=== PATIENT | female | born 1970 ===

== ENCOUNTER 2016-07-25 21:59 | Emergency (ER) | payer MEDICAID ==
[2016-07-25 21:59] VITALS: BMI 30.4
[2016-07-25 22:24] VITALS: RESP 16; TEMP 97.9; O2SAT 100
--- NOTE | 2016-07-25 22:34 | ED PDOC ---
HPI: Psych/Substance Abuse Time Seen by Provider: 07/25/16 22:26 Chief Complaint (Nursing): Psychiatric Evaluation Chief Complaint (Provider): Crisis eval History Per: Patient Additional Complaint(s): To ED for psych evaluation. Patient states she is feeling depressed starting today. Patient denies suicidal or homicidal ideations. Patient currently receiving monthly injection of Abilify 3mg and taking Lamictal 100mg daily. Past Medical History Reviewed: Historical Data, Nursing Documentation, Vital Signs Vital Signs: Last Vital Signs Temp 97.9 F 07/25/16 22:21 Pulse 80 07/25/16 22:21 Resp 16 07/25/16 22:21 BP 144/92 H 07/25/16 22:21 Pulse Ox 100 07/25/16 22:21 - Medical History PMH: Anemia, Anxiety, Depression, Hypothyroidism Denies: HIV, Chronic Kidney Disease - Surgical History Surgical History: Cholecystectomy, Hernia Repair (x 3), (x 2) - Family History Family History: States: Unknown Family Hx - Living Arrangements Living Arrangements: With Family - Social History Current smoker - smoking cessation education provided: No Alcohol: None Drugs: Denies - Home Medications Home Medications: Ambulatory Orders Medication Instructions Recorded ARIPiprazole [Abilify] 5 mg PO DAILY 06/03/14 Levothyroxine [Synthroid] 75 mcg PO DAILY 06/03/14 Risperidone [Risperdal] 2 mg PO BID 05/25/16 Docusate [Colace] 100 mg PO BID PRN #30 cap 05/27/16 Ferrous Sulfate [Feosol] 325 mg PO BID #60 tab 05/27/16 - Allergies Allergies/Adverse Reactions: Allergies Allergy/AdvReac Type Severity Reaction Status Date / Time No Known Allergies Allergy Verified 07/25/16 22:21 Review of Systems ROS Statement: Except As Marked, All Systems Reviewed And Found Negative Physical Exam - Reviewed Nursing Documentation Reviewed: Yes Vital Signs Reviewed: Yes - Physical Exam Appears: Positive for: Well, Non-toxic, No Acute Distress Head Exam: Positive for: ATRAUMATIC, NORMAL INSPECTION, NORMOCEPHALIC Skin: Positive for: Normal Color, Warm, DRY Eye Exam: Positive for: EOMI, Normal appearance, PERRL ENT: Positive for: Normal ENT Inspection Neck: Positive for: Normal, Painless ROM Cardiovascular/Chest: Positive for: Regular Rate, Rhythm Respiratory: Positive for: CNT, Normal Breath Sounds Gastrointestinal/Abdominal: Positive for: Normal Exam, Bowel Sounds, Soft Back: Positive for: Normal Inspection Extremity: Positive for: Normal ROM Neurologic/Psych: Positive for: Alert, Oriented - ECG O2 Sat by Pulse Oximetry: 100 Medical Decision Making Medical Decision Making: Pt underwent crisis eval, see note Disposition - Clinical Impression Clinical Impression: Depression - Patient ED Disposition Is Patient to be Admitted: No - Disposition Disposition: Routine/Home Disposition Time: 00:00 Condition: GOOD Instructions: Depression (ED) - POA Present On Arrival: None
[2016-07-26 01:07] VITALS: BP 133/81; PULSE 76
== END 2016-07-26 01:20 | disposition home or self-care (01) ==
LOC: H.ER 21:59
DX: F32.9 Major depressive disorder, single episode, unspecified (principal)

== ENCOUNTER 2016-10-31 11:23 | Emergency (ER) | payer MEDICAID ==
[2016-10-31 11:23] VITALS: BMI 30.4
[2016-10-31 11:42] VITALS: BP 126/75; PULSE 80; RESP 18; TEMP 98.2; O2SAT 99
--- NOTE | 2016-10-31 12:22 | ED PDOC ---
HPI: General Adult Time Seen by Provider: 10/31/16 11:58 Chief Complaint (Nursing): Med Refill Chief Complaint (Provider): Medicine refill History Per: Patient History/Exam Limitations: no limitations Have you had recent travel within the past 21 days to any of the following countries: [place], [place], [place] or [place]?: No Additional Complaint(s): The pt is a 46yo female, presents to ED for Abilify 300 mg with last dose taken 30 daysa go. Pt reports she [facility] but she got the medicine yesterday and was unable to visit the clinic. She currently offers no medical complaints. Denies any suicidal, homicidal ideation; denies auditory or visual hallucinations. Past Medical History Reviewed: Historical Data, Nursing Documentation, Vital Signs Vital Signs: Last Vital Signs Temp 98.2 F 10/31/16 11:40 Pulse 80 10/31/16 11:40 Resp 18 10/31/16 11:40 BP 126/75 10/31/16 11:40 Pulse Ox 99 10/31/16 12:38 - Medical History PMH: Anemia, Anxiety, Depression, Hypothyroidism Denies: Diabetes, Hepatitis, HIV, HTN, Chronic Kidney Disease, Seizures, Sexually Transmitted Disease - Surgical History Surgical History: Cholecystectomy, Hernia Repair (x 3), (x 2) - Family History Family History: States: Unknown Family Hx - Home Medications Home Medications: Ambulatory Orders Medication Instructions Recorded ARIPiprazole [Abilify] 5 mg PO DAILY 06/03/14 Levothyroxine [Synthroid] 75 mcg PO DAILY 06/03/14 Risperidone [Risperdal] 2 mg PO BID 05/25/16 Docusate [Colace] 100 mg PO BID PRN #30 cap 05/27/16 Ferrous Sulfate [Feosol] 325 mg PO BID #60 tab 05/27/16 - Allergies Allergies/Adverse Reactions: Allergies Allergy/AdvReac Type Severity Reaction Status Date / Time No Known Allergies Allergy Verified 10/31/16 11:39 Review of Systems ROS Statement: Except As Marked, All Systems Reviewed And Found Negative Constitutional: Positive for: Other (requesting dosage of Abilify 300mg) Psych: Negative for: Suicidal ideation, Other (hallucinations) Physical Exam - Reviewed Nursing Documentation Reviewed: Yes Vital Signs Reviewed: Yes - Physical Exam Appears: Positive for: Well, Non-toxic, No Acute Distress Head Exam: Positive for: ATRAUMATIC, NORMAL INSPECTION, NORMOCEPHALIC Skin: Positive for: Normal Color, Warm, DRY Eye Exam: Positive for: Normal appearance Respiratory: Negative for: Respiratory Distress Neurologic/Psych: Positive for: Alert, Oriented, Mood/Affect (calm, cooperative) . Negative for: Aphasia, Facial Droop - ECG O2 Sat by Pulse Oximetry: 99 (RA) Pulse Ox Interpretation: Normal - Progress ED Course And Treament: Medication sent to pharmacy and confirmed. Abilify administered by RN to patient. Medical Decision Making Medical Decision Making: Time: 1207 Impression: Medication refill Plan: -- Consult with pharmacy to verify medication Time: 1237 Medication verified with the pharmacy. Will administer pt Abilify 300 mg. Scribe Attestation: Documented by Diane Hemphill acting as a scribe for ARIA Jones Provider Attestation: All medical record entries made by the Scribe were at my direction and personally dictated by me. I have reviewed the chart and agree that the record accurately reflects my personal performance of the history, physical exam, medical decision making, and the department course for this patient. I have also personally directed, reviewed, and agree with the discharge instructions and disposition. Disposition - Clinical Impression Clinical Impression: Medication administered - Patient ED Disposition Is Patient to be Admitted: No - Disposition Disposition: Routine/Home Disposition Time: 12:20 Condition: STABLE Instructions: Bipolar Disorder (ED)
[2016-10-31] MEDS ORDERED: ABILIFY MAINTENA 300 MG IM STA (12:33)
== END 2016-10-31 12:52 | disposition home or self-care (01) ==
LOC: H.ER 11:23
DX: F32.9 Major depressive disorder, single episode, unspecified (principal); Z76.0 Encounter for issue of repeat prescription

== ENCOUNTER 2016-11-13 10:36 | Emergency (ER) | payer MEDICAID ==
[2016-11-13 10:45] VITALS: BMI 34.4
[2016-11-13 10:46] VITALS: O2SAT 98
--- NOTE | 2016-11-13 11:56 | ED PDOC ---
HPI: Abdomen Time Seen by Provider: 11/13/16 10:52 Chief Complaint (Nursing): Abdominal Pain History Per: Patient History/Exam Limitations: no limitations Onset/Duration Of Symptoms: Gradual (3 weeks), Worse Since (today) Severity: Moderate Location Of Pain/Discomfort: LLQ Quality Of Discomfort: Sharp Associated Symptoms: Urinary Symptoms. denies: Fever, Chills, Nausea, Vomiting , Constipation Exacerbating Factors: None Alleviating Factors: None Additional History Per: Patient Additional Complaint(s): complaining of left lower quadrant abdominal pain radiating to left flank on and off for 4 weeks Past Medical History Reviewed: Historical Data, Nursing Documentation, Vital Signs Vital Signs: Last Vital Signs Temp 98 F 11/13/16 10:45 Pulse 80 11/13/16 10:45 Resp 17 11/13/16 10:45 BP 123/84 11/13/16 10:45 Pulse Ox 98 11/13/16 11:57 - Medical History PMH: Anemia, Anxiety, Depression, Hypothyroidism Denies: Diabetes, Hepatitis, HIV, HTN, Chronic Kidney Disease, Seizures, Sexually Transmitted Disease - Surgical History Surgical History: Cholecystectomy, Hernia Repair (x 3), (x 2) - Family History Family History: States: Unknown Family Hx - Living Arrangements Living Arrangements: With Family - Social History Current smoker - smoking cessation education provided: No - Home Medications Home Medications: Ambulatory Orders Medication Instructions Recorded ARIPiprazole [Abilify] 5 mg PO DAILY 06/03/14 Levothyroxine [Synthroid] 75 mcg PO DAILY 06/03/14 Risperidone [Risperdal] 2 mg PO BID 05/25/16 Docusate [Colace] 100 mg PO BID PRN #30 cap 05/27/16 Ferrous Sulfate [Feosol] 325 mg PO BID #60 tab 05/27/16 Naproxen [Naprosyn] 500 mg PO BID PRN #30 tablet 11/13/16 - Allergies Allergies/Adverse Reactions: Allergies Allergy/AdvReac Type Severity Reaction Status Date / Time No Known Allergies Allergy Verified 10/31/16 11:39 Review of Systems ROS Statement: Except As Marked, All Systems Reviewed And Found Negative Constitutional: Negative for: Fever, Chills Cardiovascular: Negative for: Chest Pain, Palpitations Respiratory: Negative for: Cough, Shortness of Breath Gastrointestinal: Positive for: Abdominal Pain. Negative for: Nausea, Vomiting Genitourinary Female: Positive for: Hematuria. Negative for: Vaginal Discharge , Vaginal Bleeding Physical Exam - Reviewed Nursing Documentation Reviewed: Yes Vital Signs Reviewed: Yes - Physical Exam Appears: Positive for: Uncomfortable Head Exam: Positive for: ATRAUMATIC, NORMAL INSPECTION, NORMOCEPHALIC Eye Exam: Positive for: Normal appearance, EOMI, PERRL Neck: Positive for: Normal, Painless ROM, Supple Cardiovascular/Chest: Positive for: Regular Rate, Rhythm, Chest Non Tender. Negative for: Edema, Gallop, Murmur, Bradycardia, Tachycardia Respiratory: Positive for: Normal Breath Sounds. Negative for: Decreased Breath Sounds, Accessory Muscle Use, Crackles, Rales, Rhonchi, Stridor, Wheezing Pulses-Radial (L): 2+ Pulses-Radial (R): 2+ Gastrointestinal/Abdominal: Positive for: Normal Exam, Bowel Sounds, Soft. Negative for: Tenderness Back: Positive for: Normal Inspection. Negative for: L CVA Tenderness, R CVA Tenderness Extremity: Positive for: Normal ROM. 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 Negative for: Motor/Sensory Deficits - Laboratory Results Result Diagrams: 11/13/16 12:00 11/13/16 12:00 - ECG O2 Sat by Pulse Oximetry: 98 Pulse Ox Interpretation: Normal - Progress ED Course And Treament: PROCEDURE: CT Abdomen and Pelvis without intravenous contrast HISTORY: L flank pain r/o stones COMPARISON: 11/04/2015 TECHNIQUE: Technique. Contrast Dose: Radiation dose: Total exam DLP = mGy-cm. This CT exam was performed using one or more of the following dose reduction techniques: Automated exposure control, adjustment of the mA and/or kV according to patient size, and/or use of iterative reconstruction technique. FINDINGS: LOWER THORAX: Unremarkable. LIVER: Unremarkable. No gross lesion or ductal dilatation. GALLBLADDER AND BILE DUCTS: Cholecystectomy.. PANCREAS: Unremarkable. No gross lesion or ductal dilatation. SPLEEN: Unremarkable. ADRENALS: Unremarkable. No mass. KIDNEYS AND URETERS: Increased density of the medullary pyramids with scattered punctate nonobstructing renal stones noted bilaterally. Partially duplicated right renal collecting system. No hydronephrosis. VASCULATURE: Unremarkable. No aortic aneurysm. BOWEL: Unremarkable. No obstruction. No gross mural thickening. APPENDIX: Unremarkable. Normal appendix. PERITONEUM: Unremarkable. No free fluid. No free air. LYMPH NODES: Unremarkable. No enlarged lymph nodes. BLADDER: Unremarkable. REPRODUCTIVE: Unremarkable. BONES: No acute fracture. OTHER FINDINGS: Prior ventral hernia repair. Eventration of the left lower quadrant anterior abdominal wall, unchanged from prior exam. IMPRESSION: No interval change. No hydronephrosis. Re-evaluation Time: 13:45 Condition: Improved Medical Decision Making Medical Decision Making: advise close f/u with surgery, advise percocet for pain close f/u with pmd. pt agree's with p;kenzie and leaves ambulatory and in good spirits. Disposition - Clinical Impression Clinical Impression: Abdominal pain - Patient ED Disposition Is Patient to be Admitted: No Counseled Patient/Family Regarding: Studies Performed, Diagnosis, Need For Followup, Rx Given - Disposition Referrals: Mauricio Shaw MD [Staff Provider] - (3 to 4 days) [facility] [Outside] (3 to 4 days) Disposition: Routine/Home Disposition Time: 13:50 Condition: STABLE Prescriptions: Naproxen [Naprosyn] 500 mg PO BID PRN #30 tablet PRN Reason: Pain, Moderate (4-7) Instructions: Inguinal Hernia (ED)
[2016-11-13] MEDS ORDERED: Sodium Chloride 0.9% 1,000 ML IV ONE (11:57)
[2016-11-13 12:08] LABS: BASO % 0.2 % (0.0-2.0); EOS # 0.1 K/uL (0.0-0.7); EOS % 2.9 % (0.0-4.0); HEMOGLOBIN 12.4 g/dL (12.0-16.0); LYMPH % 22.1 % (20.0-40.0); MEAN CELL VOLUME 83.9 fl (81.0-99.0); MEAN CORPUSCULAR HEMOGLOBIN 27.4 pg (27.0-31.0); MEAN CORPUSCULAR HGB CONC 32.7 g/dL (33.0-37.0); MEAN PLATELET VOLUME 9.1 fl (7.2-11.7); MONO # 0.3 K/uL (0.0-0.8); MONO % 6.5 % (0.0-10.0); NEUT % 68.3 % (50.0-75.0); NRBC % 0.1 % (0.0-0.0); RBC 4.52 Mil/uL (3.80-5.20); RED CELL DISTRIBUTION WIDTH 14.9 % (11.5-14.5); WHITE BLOOD COUNT 4.4 K/uL (4.8-10.8)
[2016-11-13 12:34] LABS: SQUAMOUS EPITHIAL 68 /hpf (0-5); URINE BACTERIA RARE (<OCC); URINE BILIRUBIN NEGATIVE (NEGATIVE); URINE BLOOD LARGE (NEGATIVE); URINE CLARITY TURBID (Clear); URINE COLOR AMBER (YELLOW); URINE GLUCOSE (UA) NEG (Normal); URINE LEUKOCYTE ESTERASE SMALL Leu/uL (Negative); URINE NITRATE NEGATIVE (NEGATIVE); URINE PROTEIN 100 mg/dL (NEGATIVE); URINE UROBILINOGEN 0.2-1.0 mg/dL (0.2-1.0)
[2016-11-13 12:52] LABS: ALB/GLOB RATIO 1.2 (1.0-2.1); ALBUMIN 4.3 g/dL (3.5-5.0); ALT/SGPT 22 U/L (9-52); AMYLASE 81 U/L (30-110); AST/SGOT 48 U/L (14-36); BLOOD UREA NITROGEN 11 mg/dl (7-17); GFR AFRICAN-AMERICAN > 60; GFR NON-AFRICAN AMERICAN > 60; LIPASE 53 U/L (23-300)
--- NOTE | 2016-11-13 13:46 | CT ---
PROCEDURE: CT Abdomen and Pelvis without intravenous contrast HISTORY: L flank pain r/o stones COMPARISON: 11/04/2015 TECHNIQUE: Technique. Contrast Dose: Radiation dose: Total exam DLP = mGy-cm. This CT exam was performed using one or more of the following dose reduction techniques: Automated exposure control, adjustment of the mA and/or kV according to patient size, and/or use of iterative reconstruction technique. FINDINGS: LOWER THORAX: Unremarkable. LIVER: Unremarkable. No gross lesion or ductal dilatation. GALLBLADDER AND BILE DUCTS: Cholecystectomy.. PANCREAS: Unremarkable. No gross lesion or ductal dilatation. SPLEEN: Unremarkable. ADRENALS: Unremarkable. No mass. KIDNEYS AND URETERS: Increased density of the medullary pyramids with scattered punctate nonobstructing renal stones noted bilaterally. Partially duplicated right renal collecting system. No hydronephrosis. VASCULATURE: Unremarkable. No aortic aneurysm. BOWEL: Unremarkable. No obstruction. No gross mural thickening. APPENDIX: Unremarkable. Normal appendix. PERITONEUM: Unremarkable. No free fluid. No free air. LYMPH NODES: Unremarkable. No enlarged lymph nodes. BLADDER: Unremarkable. REPRODUCTIVE: Unremarkable. BONES: No acute fracture. OTHER FINDINGS: Prior ventral hernia repair. Eventration of the left lower quadrant anterior abdominal wall, unchanged from prior exam. IMPRESSION: No interval change. No hydronephrosis.
[2016-11-13 14:31] VITALS: BP 128/78; PULSE 78; RESP 19; TEMP 97.6
== END 2016-11-13 14:38 | disposition home or self-care (01) ==
LOC: H.ER 10:36
DX: R10.32 Left lower quadrant pain (principal); E03.9 Hypothyroidism, unspecified; F32.9 Major depressive disorder, single episode, unspecified; F41.9 Anxiety disorder, unspecified

== ENCOUNTER 2017-04-30 15:17 | Emergency (ER) | payer MEDICAID ==
[2017-04-30 15:17] VITALS: BMI 34.4
[2017-04-30 15:22] VITALS: BP 142/82; PULSE 84; RESP 18; TEMP 97.3; O2SAT 100
[2017-04-30 17:21] LABS: BASO % 0.5 % (0.0-2.0); EOS # 0.1 K/uL (0.0-0.7); EOS % 2.4 % (0.0-4.0); HEMOGLOBIN 12.4 g/dL (12.0-16.0); MEAN CELL VOLUME 83.8 fl (81.0-99.0); MEAN CORPUSCULAR HEMOGLOBIN 27.6 pg (27.0-31.0); MEAN CORPUSCULAR HGB CONC 32.9 g/dL (33.0-37.0); MEAN PLATELET VOLUME 9.6 fl (7.2-11.7); MONO # 0.3 K/uL (0.0-0.8); MONO % 8.2 % (0.0-10.0); NEUT # 2.7 K/uL (1.8-7.0); NEUT % 63.9 % (50.0-75.0); NRBC % 0.3 % (0.0-0.0); RBC 4.51 Mil/uL (3.80-5.20); RED CELL DISTRIBUTION WIDTH 14.8 % (11.5-14.5); WHITE BLOOD COUNT 4.2 K/uL (4.8-10.8)
[2017-04-30 17:28] LABS: ALB/GLOB RATIO 1.1 (1.0-2.1); ALBUMIN 4.1 g/dL (3.5-5.0); ALT/SGPT 29 U/L (9-52); AST/SGOT 22 U/L (14-36); BLOOD UREA NITROGEN 8 mg/dl (7-17); GFR AFRICAN-AMERICAN > 60; GFR NON-AFRICAN AMERICAN > 60; LIPASE 58 U/L (23-300)
--- NOTE | 2017-04-30 17:33 | RAD ---
HISTORY: cough COMPARISON: 05/25/2016 TECHNIQUE: Chest PA and lateral FINDINGS: LUNGS: No active pulmonary disease. PLEURA: Stable mild interstitial changes are appreciated. In addition however there is some slight patchy alveolar density seen at the left lung base, minimally increased. Small subtle superimposed infiltrate is not excluded. No new infiltrate is seen elsewhere. Heart is unchanged in size. No CHF is seen. Trachea is midline. No effusions are noted. CARDIOVASCULAR: Normal. OSSEOUS STRUCTURES: No significant abnormalities. VISUALIZED UPPER ABDOMEN: See above OTHER FINDINGS: None. IMPRESSION: Mild interstitial changes with possible small subtle superimposed left lower lobe infiltrate although not as well seen on the lateral view.
--- NOTE | 2017-04-30 18:20 | ED PDOC ---
HPI: Abdomen Time Seen by Provider: 04/30/17 15:57 Chief Complaint (Nursing): Abdominal Pain Chief Complaint (Provider): Abdominal Pain History Per: Patient History/Exam Limitations: no limitations Onset/Duration Of Symptoms: Days (x1 month) Current Symptoms Are (Timing): Still Present Additional Complaint(s): 46 year old female with a past medical history of depression, thyroid disease, gastritis, and subdural hematoma who presents to the emergency department with a complaint of a cough x1 month. Associated with a productive sputum which looks normal and an abdominal pain to the epigastric region when coughing. Reports she was on antibiotics but does not remember the name although she is still coughing. Denies chest pain, shortness of breath, vomiting, diarrhea, and fever. PMD: Dr. Jose Molina MD Past Medical History Reviewed: Historical Data, Nursing Documentation, Vital Signs Vital Signs: Last Vital Signs Temp 97.3 F L 04/30/17 15:18 Pulse 84 04/30/17 15:18 Resp 18 04/30/17 15:18 BP 142/82 04/30/17 15:18 Pulse Ox 100 04/30/17 18:45 - Medical History PMH: Anemia, Anxiety, Depression, Hypothyroidism, Pneumonia Denies: Diabetes, Hepatitis, HIV, HTN, Chronic Kidney Disease, Seizures, Sexually Transmitted Disease Other PMH: Subdural hematoma - Surgical History Surgical History: Cholecystectomy, Hernia Repair (x 3), (x 2) - Family History Family History: States: Unknown Family Hx - Home Medications Home Medications: Ambulatory Orders Medication Instructions Recorded ARIPiprazole [Abilify] 5 mg PO DAILY 06/03/14 Levothyroxine [Synthroid] 75 mcg PO DAILY 06/03/14 Risperidone [Risperdal] 2 mg PO BID 05/25/16 Docusate [Colace] 100 mg PO BID PRN #30 cap 05/27/16 Ferrous Sulfate [Feosol] 325 mg PO BID #60 tab 05/27/16 Naproxen [Naprosyn] 500 mg PO BID PRN #30 tablet 11/13/16 levoFLOXacin [Levaquin] 500 mg PO DAILY #7 tab 04/30/17 - Allergies Allergies/Adverse Reactions: Allergies Allergy/AdvReac Type Severity Reaction Status Date / Time No Known Allergies Allergy Verified 10/31/16 11:39 Review of Systems ROS Statement: Except As Marked, All Systems Reviewed And Found Negative (As per HPI, otherwise negative) Constitutional: Negative for: Fever Cardiovascular: Negative for: Chest Pain Respiratory: Positive for: Cough, Sputum. Negative for: Shortness of Breath Gastrointestinal: Positive for: Abdominal Pain (Epigastric region with cough). Negative for: Vomiting, Diarrhea Physical Exam - Reviewed Nursing Documentation Reviewed: Yes Vital Signs Reviewed: Yes - Physical Exam Appears: Positive for: Well, Non-toxic, No Acute Distress Head Exam: Positive for: ATRAUMATIC, NORMAL INSPECTION, NORMOCEPHALIC Skin: Positive for: Normal Color, Warm, Dry Cardiovascular/Chest: Positive for: Regular Rate, Rhythm. Negative for: Murmur Respiratory: Positive for: Normal Breath Sounds. Negative for: Accessory Muscle Use, Respiratory Distress Gastrointestinal/Abdominal: Positive for: Normal Exam, Soft. Negative for: Tenderness Extremity: Positive for: Normal ROM. Negative for: Pedal Edema Neurologic/Psych: Positive for: Alert, Oriented (x3) - Laboratory Results Result Diagrams: 04/30/17 16:45 04/30/17 16:45 - ECG O2 Sat by Pulse Oximetry: 100 (RA) Pulse Ox Interpretation: Normal Medical Decision Making Medical Decision Making: Time: 1938 Initial impression: Cough and congestion x1 month differential includes bronchitis and pneumonia Initial plan: CMP Lipase CBC w/ diff Chest x-ray Influenza A B reevaluation Time: 1730 --Chest x-ray FINDINGS: LUNGS: No active pulmonary disease. PLEURA: Stable mild interstitial changes are appreciated. In addition however there is some slight patchy alveolar density seen at the left lung base, minimally increased. Small subtle superimposed infiltrate is not excluded. No new infiltrate is seen elsewhere. Heart is unchanged in size. No CHF is seen. Trachea is midline. No effusions are noted. CARDIOVASCULAR: Normal. OSSEOUS STRUCTURES: No significant abnormalities. VISUALIZED UPPER ABDOMEN: See above OTHER FINDINGS: None. IMPRESSION: Mild interstitial changes with possible small subtle superimposed left lower lobe infiltrate although not as well seen on the lateral view. Scribe Attestation: Documented by Kenzie Dumont, acting as a scribe for Maryam Rehman MD. Provider Scribe Attestation: All medical record entries made by the Scribe were at my direction and personally dictated by me. I have reviewed the chart and agree that the record accurately reflects my personal performance of the history, physical exam, medical decision making, and the department course for this patient. I have also personally directed, reviewed, and agree with the discharge instructions and disposition. Disposition - Clinical Impression Clinical Impression: Pneumonia - Patient ED Disposition Is Patient to be Admitted: No Doctor Will See Patient In The: Office Counseled Patient/Family Regarding: Studies Performed, Diagnosis, Need For Followup - Disposition Referrals: [facility] [Outside] Disposition: Routine/Home Disposition Time: 18:39 Condition: GOOD Additional Instructions: Take your medications as instructed. Follow up with your PCP in 2-3 days. Prescriptions: levoFLOXacin [Levaquin] 500 mg PO DAILY #7 tab Instructions: Community Acquired Pneumonia (ED)
== END 2017-04-30 19:03 | disposition home or self-care (01) ==
LOC: H.ER 15:17
DX: J18.9 Pneumonia, unspecified organism (principal); E03.9 Hypothyroidism, unspecified; F32.9 Major depressive disorder, single episode, unspecified; F41.9 Anxiety disorder, unspecified; K29.70 Gastritis, unspecified, without bleeding

== ENCOUNTER 2017-06-05 15:26 | Inpatient (IN) | payer MEDICAID ==
[2017-06-05 15:26] VITALS: BMI 34.4
--- NOTE | 2017-06-05 16:25 | ED PDOC ---
HPI: Psych/Substance Abuse Time Seen by Provider: 06/05/17 16:00 Chief Complaint (Nursing): Psychiatric Evaluation Chief Complaint (Provider): Psychiatric Evaluation History Per: Patient History/Exam Limitations: no limitations Onset/Duration Of Symptoms: Hrs Current Symptoms Are (Timing): Still Present Suicide/Self Injury Attempted (Context): None Modifying Factor(s): None Additional Complaint(s): 46 year old female with a past medical history of bipolar disorder and anxiety presents to the ED to be evaluated. The patient states that she is feeling unwell due to her sister being very ill and in the hospital. In addition ot that , the patient states that her came home with his new girlfriend and told her she had to move out because his new girlfriend would be moving in. Denies HI/SI ideation. PMD: Jose Anders Past Medical History Reviewed: Historical Data, Nursing Documentation, Vital Signs Vital Signs: Last Vital Signs Temp 98.6 F 06/05/17 15:28 Pulse 88 06/05/17 15:28 Resp 20 06/05/17 15:28 BP 149/76 06/05/17 15:28 Pulse Ox 99 06/05/17 15:28 - Medical History PMH: Anemia, Anxiety, Depression, Hypothyroidism, Pneumonia Denies: Diabetes, Hepatitis, HIV, HTN, Chronic Kidney Disease, Seizures, Sexually Transmitted Disease - Surgical History Surgical History: Cholecystectomy, Hernia Repair (x 3), (x 2) - Family History Family History: States: Unknown Family Hx - Home Medications Home Medications: Ambulatory Orders Medication Instructions Recorded ARIPiprazole [Abilify] 5 mg PO DAILY 06/03/14 Levothyroxine [Synthroid] 75 mcg PO DAILY 06/03/14 Risperidone [Risperdal] 2 mg PO BID 05/25/16 Docusate [Colace] 100 mg PO BID PRN #30 cap 05/27/16 Ferrous Sulfate [Feosol] 325 mg PO BID #60 tab 05/27/16 Naproxen [Naprosyn] 500 mg PO BID PRN #30 tablet 11/13/16 levoFLOXacin [Levaquin] 500 mg PO DAILY #7 tab 04/30/17 - Allergies Allergies/Adverse Reactions: Allergies Allergy/AdvReac Type Severity Reaction Status Date / Time No Known Allergies Allergy Verified 10/31/16 11:39 Review of Systems Psych: Negative for: Suicidal ideation (no homicidal ideations) Physical Exam - Reviewed Nursing Documentation Reviewed: Yes Vital Signs Reviewed: Yes - Physical Exam Appears: Positive for: Non-toxic, No Acute Distress Head Exam: Positive for: NORMAL INSPECTION Skin: Positive for: Normal Color, Warm, Dry. Negative for: Rash Eye Exam: Positive for: Normal appearance, EOMI, PERRL ENT: Positive for: Normal ENT Inspection. Negative for: Nasal Congestion, Tonsillar Exudate, Tonsillar Swelling Neck: Positive for: Normal, Painless ROM, Supple Cardiovascular/Chest: Positive for: Regular Rate, Rhythm, Chest Non Tender. Negative for: Tachycardia Respiratory: Positive for: Normal Breath Sounds. Negative for: Wheezing, Respiratory Distress Gastrointestinal/Abdominal: Positive for: Normal Exam, Bowel Sounds, Soft. Negative for: Tenderness Neurologic/Psych: Positive for: Alert, Oriented, Gait - ECG O2 Sat by Pulse Oximetry: 99 (RA) Pulse Ox Interpretation: Normal Medical Decision Making Medical Decision Makin Initial Impression 46 y/o female presenting with depression Initial Plan: * Alcohol Serum * BMP * Drug Screen * Upreg * CBC * Urinalysis * Reevaluation Documented by Samantha Greenwood acting as a scribe for Crystal Alfaro PA-C. All medical record entries made by the Scribe were at my direction and personally dictated by me. I have reviewed the chart and agree that the record accurately reflects my personal performance of the history, physical exam, medical decision making, and the department course for this patient. I have also personally directed, reviewed, and agree with the discharge instructions and disposition. Disposition - Disposition
[2017-06-05 16:41] LABS: BASO % 0.6 % (0.0-2.0); EOS # 0.1 K/uL (0.0-0.7); EOS % 1.4 % (0.0-4.0); HEMOGLOBIN 13.1 g/dL (12.0-16.0); LYMPH # 1.4 K/uL (1.0-4.3); LYMPH % 29.7 % (20.0-40.0); MEAN CELL VOLUME 84.7 fl (81.0-99.0); MEAN CORPUSCULAR HEMOGLOBIN 27.6 pg (27.0-31.0); MEAN CORPUSCULAR HGB CONC 32.6 g/dL (33.0-37.0); MEAN PLATELET VOLUME 8.9 fl (7.2-11.7); MONO # 0.4 K/uL (0.0-0.8); MONO % 8.8 % (0.0-10.0); NEUT # 2.9 K/uL (1.8-7.0); NEUT % 59.5 % (50.0-75.0); RBC 4.73 Mil/uL (3.80-5.20); RED CELL DISTRIBUTION WIDTH 15.1 % (11.5-14.5); WHITE BLOOD COUNT 4.8 K/uL (4.8-10.8)
[2017-06-05 16:49] LABS: BLOOD UREA NITROGEN 9 mg/dl (7-17); CALCIUM 9.2 mg/dL (8.4-10.2); GFR AFRICAN-AMERICAN > 60; GFR NON-AFRICAN AMERICAN > 60
[2017-06-05 16:54] LABS: BARBITURATES, UR NEGATIVE (NEGATIVE); BENZODIAZEPINES, UR NEGATIVE (NEGATIVE); OPIATES, UR NEGATIVE (NEGATIVE); PHENCYCLIDINE, UR NEGATIVE (NEGATIVE)
[2017-06-05 17:04] LABS: SQUAMOUS EPITHIAL 12 /hpf (0-5); URINE BACTERIA RARE (<OCC); URINE BILIRUBIN NEGATIVE (NEGATIVE); URINE BLOOD SMALL (NEGATIVE); URINE CLARITY CLOUDY (Clear); URINE COLOR YELLOW (YELLOW); URINE GLUCOSE (UA) NEG (Normal); URINE LEUKOCYTE ESTERASE NEG Leu/uL (Negative); URINE NITRATE NEGATIVE (NEGATIVE); URINE PROTEIN NEGATIVE (NEGATIVE); URINE UROBILINOGEN 0.2-1.0 mg/dL (0.2-1.0)
[2017-06-05 17:44] VITALS: O2SAT 98
[2017-06-05] MEDS ORDERED: Alum-Mag Hydrox-Simethicone Susp (30 mL) PO PRN (18:32)
[2017-06-05] MEDS ORDERED: DiphenhydrAMINE 50 mg/ml Inj IM PRN (18:32)
[2017-06-05] MEDS ORDERED: Magnesium Hydroxide Susp 30 ml UD PO PRN (18:32)
--- NOTE | 2017-06-05 19:05 | PCM.BM ---
Treatment Plan Problems - Problems identified on initial assessmt Hopelessness/Helplessness Date Initiated: 06/05/17 Time Initiated: 19:05 Assessment reference: NA Status: Active Social Isolation Date Initiated: 06/05/17 Time Initiated: 19:05 Assessment reference: NA Status: Active Treatment assets and liabiliti Patient Assests: ADL independent, physically healthy, negotiates basic needs Patient Liabilities: relationship conflicts (emotional issues, past trauma), other
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
[2017-06-06] MEDS: Levothyroxine 88 MCG TAB PO SCH (06:48)
--- NOTE | 2017-06-06 14:37 | PCM.PSYCH ---
Initial Psychiatric Evaluation - Initial Psychiatric Evaluation Type of Admission: Voluntary Legal Status: Capacity Chief Complaint (in patient's own words): I feel depressed and sad Patient's Reaction to Hospitalization: pt requested help History of Present Illness and Precipitating Events: pt with previous diagnosis of bipolar disorder depressed, presented to ER with depressed mood pssive suicidal ideations no plan, related that to her cheating on her and to her sister extemely sick and dying in [place], pt reported poor sleep and energy denied manic or psychotic symptoms Current Medications: Active Medications Generic Name Dose Route Start Last Admin Trade Name Freq PRN Reason Stop Dose Admin Acetaminophen 650 mg 06/05/17 18:32 06/05/17 22:51 Tylenol 325mg Tab PO 650 mg Q4 PRN Administration Pain, moderate (4-7) Al Hydrox/Mg Hydrox/Simethicone 30 ml 06/05/17 18:32 Maalox Plus 30 Ml PO Q4 PRN Dyspepsia Diphenhydramine HCl 50 mg 06/05/17 18:32 Benadryl IM Q6 PRN Extrapyramidal S/S Unable PO Diphenhydramine HCl 50 mg 06/05/17 18:32 Benadryl PO Q6 PRN Extrapyramidal Symptoms Escitalopram Oxalate 5 mg 06/06/17 22:00 Lexapro PO HS [facility] Haloperidol 5 mg 06/05/17 18:32 Haldol PO Q4 PRN Agitation Haloperidol Lactate 5 mg 06/05/17 18:32 Haldol IM Q4 PRN Agitation, Unable to Take PO Lamotrigine 100 mg 06/06/17 09:00 06/06/17 09:47 Lamictal PO 100 mg DAILY CHYNA Administration Levothyroxine Sodium 88 mcg 06/06/17 06:30 06/06/17 06:48 Synthroid PO 88 mcg DAILY@0630 [facility] Administration Lorazepam 2 mg 06/05/17 18:32 Ativan IM Q4 PRN Anxiety/Agitation,Unable PO Lorazepam 2 mg 06/05/17 18:32 Ativan PO Q4 PRN Anxiety/Agitation Magnesium Hydroxide 30 ml 06/05/17 18:32 Milk Of Magnesia PO HS PRN Constipation Past Psychiatric History - Past Psychiatric History Explanation of prior treatment: previous admissions for depression follows up in outpatient with Ant Driscoll History of ETOH/Drug Use: denied Pertinent Medical Hx (Current Medical&Sleep Prob, Allergies): Allergies Allergy/AdvReac Type Severity Reaction Status Date / Time No Known Allergies Allergy Verified 10/31/16 11:39 Aripiprazole [Abilify Maintena] 300 mg IM TTS 06/05/17 Levothyroxine Sodium [Synthroid] 0.088 mg PO DAILY 06/05/17 lamoTRIgine [Lamictal] 100 mg PO DAILY 06/05/17 Mental Status Examination - Personal Presentation Personal Presentation: Looks older than stated age - Affect Affect: Constricted, Depressed - Motor Activity Motor Activity: Psychomotor Retardation - Reliability in Providing Information Reliability in Providing Information: Poor, due to altered mood - Mood Mood: Depressed, Anxious - Formal Thought Process Formal Thought Process: Circumstantial Additional comments: denied perceptual disturbances, non elicited - Obsessions/Compulsions Obsessions: No Compulsions: No - Cognitive Functions Orientation: Person, Place Sensorium: Alert Judgement: Imparied, as evidence by: Poor judgement - Risk Risk: Diminished functioning - Strength & Assets Inventory Strength & Assets Inventory: Life experience - Limitations Additional comments: poor social support DSM 5 DX - DSM 5 DSM 5 Diagnosis: bipolar disorder depressed - Recommended/Plan of Treatment Treatment Recommendations and Plan of Treatment: continue with abilify maintenna start lexapro 5mg group and supportive therapy Prognosis: guarded
[2017-06-07] MEDS: Levothyroxine 88 MCG TAB PO SCH (06:25)
[2017-06-07 09:21] VITALS: RESP 18
[2017-06-07] MEDS: Enoxaparin 40 mg Syringe SC SCH (09:41)
--- NOTE | 2017-06-07 14:40 | PCM.PYCHPN ---
Psychiatric Progress Note - Psychiatric Progress Note Patient seen today, length of contact: pt evaluated discussed with team chart reviewed Patient Chief Complaint: I am feeling better today Problems Identified/Issues Discussed: pt seen in day room calm cooperative reported better mood presenting with brighter affect stated that attending the groups really helped her to deal with the negative automatic thoughts, pt received the abilify injection today, denied any current sucidal or homicidal ideations, denied perceptual disturbances Medical Problems: previous admissions for depression follows up in outpatient with Ant Driscoll DSM 5 Symptoms Update: bipolar disorder depressed Medication Change: No Medical Record Reviewed: Yes Mental Status Examination - Cognitive Function Orientation: Person, Place Memory: Intact Attention: WNL Concentration: WNL Association: WNL Fund of Knowledge: Poor Decription of patient's judgement and insights: partial insight and fair judgment - Mood Mood: Depressed, Anxious - Affect Affect: Constricted, Depressed - Speech Speech: Appropriate - Formal Thought Process Formal Thought Process: Circumstantial Psychotic Thoughts and Behaviors: pt denied perceptual disturbances, non elicited - Suicidal Ideation Suicidal Ideation: No - Homicidal Ideation Homicidal Ideation: No Goal/Treatment Plan - Goal/Treatment Plan Need for Continued Stay: Discharge may exacerbated symptoms Progress Toward Problem(s) and Goals/Treatment Plan: continue with abilify maintenna lexapro 5mg group and supportive therapy Estimated Date of D/C: 06/08/17
[2017-06-08] MEDS: Levothyroxine 88 MCG TAB PO SCH (06:55)
[2017-06-08] MEDS: Enoxaparin 40 mg Syringe SC SCH (09:07)
[2017-06-08 09:15] VITALS: BP 138/78; PULSE 89; TEMP 97.3
--- NOTE | 2017-06-08 09:41 | CP.PCM.PN ---
Subjective - Date & Time of Evaluation Date of Evaluation: 06/08/17 Time of Evaluation: 08:40 Objective - Vital Signs/Intake and Output Vital Signs (last 24 hours): Temp Pulse Resp BP Pulse Ox 97.3 F L 89 18 138/78 98 06/08/17 09:00 06/08/17 09:00 06/08/17 09:00 06/08/17 09:00 06/05/17 17:44 - Medications Medications: Current Medications Acetaminophen (Tylenol 325mg Tab) 650 mg PO Q4 PRN PRN Reason: Pain, moderate (4-7) Last Admin: 06/05/17 22:51 Dose: 650 mg Al Hydrox/Mg Hydrox/Simethicone (Maalox Plus 30 Ml) 30 ml PO Q4 PRN PRN Reason: Dyspepsia Diphenhydramine HCl (Benadryl) 50 mg IM Q6 PRN PRN Reason: Extrapyramidal S/S Unable PO Diphenhydramine HCl (Benadryl) 50 mg PO Q6 PRN PRN Reason: Extrapyramidal Symptoms Enoxaparin Sodium (Lovenox) 40 mg SC DAILY [facility] PRN Reason: Protocol Last Admin: 06/08/17 09:07 Dose: 40 mg Escitalopram Oxalate (Lexapro) 5 mg PO HS [facility] Last Admin: 06/08/17 09:06 Dose: 5 mg Haloperidol (Haldol) 5 mg PO Q4 PRN PRN Reason: Agitation Haloperidol Lactate (Haldol) 5 mg IM Q4 PRN PRN Reason: Agitation, Unable to Take PO Lamotrigine (Lamictal) 100 mg PO DAILY [facility] Last Admin: 06/08/17 09:06 Dose: 100 mg Levothyroxine Sodium (Synthroid) 88 mcg PO DAILY@0630 [facility] Last Admin: 06/08/17 06:55 Dose: 88 mcg Lorazepam (Ativan) 2 mg IM Q4 PRN PRN Reason: Anxiety/Agitation,Unable PO Lorazepam (Ativan) 2 mg PO Q4 PRN PRN Reason: Anxiety/Agitation Magnesium Hydroxide (Milk Of Magnesia) 30 ml PO HS PRN PRN Reason: Constipation - Labs Labs: 06/05/17 16:32 06/05/17 16:32
--- NOTE | 2017-06-08 15:38 | PCM.PYCHDC ---
Mental Status Examination - Mental Status Examination Orientation: Person, Place, Situation, Time Memory: Intact Mood: Neutral Speech: Appropriate Attention: WNL Concentration: WNL Formal Thought Process: Circumstantial Description of patient's judgement and insight: partial insight and fair judgment Psychotic Thoughts and Behaviors: pt denied perceptual disturbances, non elicited Suicidal Ideation: No Current Homicidal Ideation?: No Discharge Summary - Discharge Note Reason for Hospitalization: pt requested help pt with previous diagnosis of bipolar disorder depressed, presented to ER with depressed mood pssive suicidal ideations no plan, related that to her cheating on her and to her sister extemely sick and dying in [place], pt reported poor sleep and energy denied manic or psychotic symptoms Consultations:: List each consultation separately and include: 1. Reason for request. 2. Findings. 3. Follow-up Summary of Hospital Course include:: 1. Description of specific treatment plan utilized for patients during their course of treatmen. 2. Summarize the time- course for resolution of acute symptoms and/or regressed behaviors. 3. Describe issues identified and worked on during hospitalization. 4. Describe medication utilized. 5. Describe medical problems identified and treated. 6. Reassessment of suicide risk Summary of Hospital Course: pt was placed on lexapro 5mg received abilify maintenna injection 06/07/17 lamictal 100m,g continued pt complied with treatment attended groups on discharge presented with bright mood and affect denied suicidal or homicidal ideations denied perceptual disturbances, not danger to self ot others - Final Diagnosis (DSM 5) Condition upon Discharge: IMPROVED Disposition: HOME/ ROUTINE Follow-up Treatment Plan: continue with abilify maintenna lexapro 5mg group and supportive therapy Prescriptions/Medication Reconciliation: Escitalopram [Lexapro] 5 mg PO HS 30 Days #30 tab lamoTRIgine [Lamictal] 100 mg PO DAILY 30 Days #60 tab
== END 2017-06-08 11:41 | disposition home or self-care (01) | DRG 430 ==
LOC: H.ER 15:26 → H.ERHOLD 18:25 → H.PSYCH 18:30
PROVIDERS: ADMIT Psychiatry & Neurology Psychiatry; ATTEND Psychiatry & Neurology Psychiatry
PROC: GZHZZZZ Group Psychotherapy (ICD-10-PCS; principal; 2017-06-05)
PROC: GZ56ZZZ Individual Psychotherapy, Supportive (ICD-10-PCS; 2017-06-05)
DX: F31.9 Bipolar disorder, unspecified (principal); R45.851 Suicidal ideations; E03.9 Hypothyroidism, unspecified; Z87.891 Personal history of nicotine dependence

== ENCOUNTER 2017-09-21 10:32 | Emergency (ER) | payer MEDICAID ==
[2017-09-21 10:42] VITALS: BMI 33.8
[2017-09-21] MEDS ORDERED: Naproxen 500 MG TAB PO STA (10:57)
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
[2017-09-21] MEDS ORDERED: Naproxen 500 MG TAB PO ONE (11:24)
[2017-09-21 11:41] LABS: BASO % 0.4 % (0.0-2.0); EOS # 0.1 K/uL (0.0-0.7); EOS % 1.3 % (0.0-4.0); HEMOGLOBIN 11.8 g/dL (12.0-16.0); LYMPH # 0.8 K/uL (1.0-4.3); LYMPH % 16.5 % (20.0-40.0); MEAN CELL VOLUME 83.9 fl (81.0-99.0); MEAN CORPUSCULAR HEMOGLOBIN 27.7 pg (27.0-31.0); MEAN CORPUSCULAR HGB CONC 33.1 g/dL (33.0-37.0); MEAN PLATELET VOLUME 8.3 fl (7.2-11.7); MONO # 0.3 K/uL (0.0-0.8); MONO % 5.8 % (0.0-10.0); NEUT # 3.7 K/uL (1.8-7.0); NRBC % 0.2 % (0.0-0.0); RBC 4.25 Mil/uL (3.80-5.20); RED CELL DISTRIBUTION WIDTH 15.5 % (11.5-14.5); WHITE BLOOD COUNT 4.9 K/uL (4.8-10.8)
[2017-09-21 11:43] LABS: BLOOD UREA NITROGEN 10 mg/dl (7-17); CALCIUM 8.7 mg/dL (8.4-10.2); GFR AFRICAN-AMERICAN > 60; GFR NON-AFRICAN AMERICAN > 60
[2017-09-21 11:59] LABS: BARBITURATES, UR NEGATIVE (NEGATIVE); BENZODIAZEPINES, UR NEGATIVE (NEGATIVE); OPIATES, UR NEGATIVE (NEGATIVE); PHENCYCLIDINE, UR NEGATIVE (NEGATIVE)
[2017-09-21 12:38] VITALS: BP 118/83; PULSE 71; RESP 16; TEMP 98.2; O2SAT 100
--- NOTE | 2017-09-21 13:23 | RAD ---
HISTORY: Chest pain. COMPARISON: 04/30/2017 TECHNIQUE: Chest PA and lateral FINDINGS: LUNGS: No active pulmonary disease. PLEURA: No significant pleural effusion identified. No pneumothorax apparent. CARDIOVASCULAR: No radiographic findings to suggest acute or significant cardiovascular disease. OSSEOUS STRUCTURES: No significant abnormalities. VISUALIZED UPPER ABDOMEN: Normal. OTHER FINDINGS: None. IMPRESSION: No active disease. No significant interval change compared to the prior examination(s).
== END 2017-09-21 12:36 | disposition home or self-care (01) ==
LOC: H.ER 10:32
DX: R07.89 Other chest pain (principal); E03.9 Hypothyroidism, unspecified; F31.9 Bipolar disorder, unspecified; F41.9 Anxiety disorder, unspecified; Z87.891 Personal history of nicotine dependence

== ENCOUNTER 2017-10-19 12:44 | Emergency (ER) | payer MEDICAID ==
[2017-10-19 12:44] VITALS: BMI 33.8
[2017-10-19 12:49] VITALS: BP 141/85; PULSE 77; RESP 18; TEMP 98.3; O2SAT 100
--- NOTE | 2017-10-19 13:05 | ED PDOC ---
HPI: Allergic Reaction Time Seen by Provider: 10/19/17 12:52 Chief Complaint (Nursing): Allergic Reaction Chief Complaint (Provider): Rash History Per: Patient History/Exam Limitations: no limitations Onset/Duration Of Symptoms: Days (1x) Current Symptoms Are (Timing): Still Present Possible Cause: Unknown Associated Symptoms: denies: Swelling Additional Complaint(s): 47 year old female with no history of allergic reaction presents to the ED for an evaluation of burning pruritic-like rash on face. States she developed the rash yesterday and is unsure of the source that caused the rash. She denies any new food or medication. Also denies fever, shortness of breath, throat swelling , or history of anaphylactic reactions. PMD: Jose Molina Past Medical History Reviewed: Historical Data, Nursing Documentation, Vital Signs Vital Signs: Last Vital Signs Temp 98.3 F 10/19/17 12:45 Pulse 77 10/19/17 12:45 Resp 18 10/19/17 12:45 BP 141/85 10/19/17 12:45 Pulse Ox 100 10/19/17 12:45 - Medical History PMH: Anemia, Anxiety, Bipolar Disorder, Depression, Hypothyroidism, Pneumonia Denies: Diabetes, Hepatitis, HIV, HTN, Chronic Kidney Disease, Seizures, Sexually Transmitted Disease - Surgical History Surgical History: Cholecystectomy, Hernia Repair (x 3), (x 2) - Family History Family History: States: Unknown Family Hx - Home Medications Home Medications: Ambulatory Orders Medication Instructions Recorded Aripiprazole [Abilify Maintena] 300 mg IM TTS 06/05/17 Levothyroxine Sodium [Synthroid] 0.088 mg PO DAILY 06/05/17 Enoxaparin [Lovenox] 40 mg SC DAILY syr 06/08/17 Escitalopram [Lexapro] 5 mg PO HS 30 Days #30 tab 06/08/17 Levothyroxine [Synthroid] 88 mcg PO DAILY@0630 tab 06/08/17 lamoTRIgine [Lamictal] 100 mg PO DAILY 30 Days #60 tab 06/08/17 DiphenhydrAMINE [Benadryl] 1 - 2 cap PO Q6 PRN #16 cap 10/19/17 Methylprednisolone [Medrol Dose 4 mg PO DAILY #21 mg 10/19/17 Pack (21 tabs)] - Allergies Allergies/Adverse Reactions: Allergies Allergy/AdvReac Type Severity Reaction Status Date / Time No Known Allergies Allergy Verified 10/31/16 11:39 Review of Systems ROS Statement: Except As Marked, All Systems Reviewed And Found Negative ENT: Negative for: Throat Swelling Respiratory: Negative for: Shortness of Breath Skin: Positive for: Rash (burning pruritic-like rash on face) Physical Exam - Reviewed Nursing Documentation Reviewed: Yes Vital Signs Reviewed: Yes - Physical Exam Appears: Positive for: Non-toxic, No Acute Distress Head Exam: Positive for: ATRAUMATIC, NORMAL INSPECTION, NORMOCEPHALIC Skin: Positive for: Rash (erythematous macular rash on both sides of face, greatest on perinasal area, positive blanching) Eye Exam: Positive for: Normal appearance, EOMI, PERRL. Negative for: Periorbital swelling, Periorbital tenderness ENT: Negative for: Tonsillar Exudate, Tonsillar Swelling Cardiovascular/Chest: Positive for: Regular Rate, Rhythm. Negative for: Murmur Respiratory: Positive for: Normal Breath Sounds. Negative for: Respiratory Distress Neurologic/Psych: Positive for: Alert, Oriented (x3). Negative for: Motor/ Sensory Deficits - ECG O2 Sat by Pulse Oximetry: 100 (RA) Disposition - Clinical Impression Clinical Impression: Rash - Patient ED Disposition Is Patient to be Admitted: No - Disposition [facility]errals: [facility] [Outside] [facility] [Outside] Disposition: Routine/Home Disposition Time: 13:03 Condition: STABLE Additional Instructions: Follow up with [facility] for further evaluation. Return to ED immediately if symptoms worsen. Prescriptions: DiphenhydrAMINE [Benadryl] 1 - 2 cap PO Q6 PRN #16 cap PRN Reason: itching or rash Methylprednisolone [Medrol Dose Pack (21 tabs)] 4 mg PO DAILY #21 mg Instructions: Skin Rash (DC) Forms: [employer] ([employer]eless) Medical Decision Making Medical Decision Making: Time: 1252 Initial Plan: --Reevaluation Clinical Impression: Rash Upon provider evaluation patient is medically stable, and requires no further treatment in the ED at this time. Patient will be discharged with Benadryl 1-2 cap and Medrol Dose Pack 4mg for skin rash. Counseling was provided and all questions were answered regarding diagnosis and need for follow up with [facility]. There is agreement to discharge plan. Return if symptoms persist or worsen. Scribe Attestation: Documented by Broderick Paz, acting as a scribe for Xiang Geiger PA-C. Provider Scribe Attestation: All medical record entries made by the Scribe were at my direction and personally dictated by me. I have reviewed the chart and agree that the record accurately reflects my personal performance of the history, physical exam, medical decision making, and the department course for this patient. I have also personally directed, reviewed, and agree with the discharge instructions and disposition.
== END 2017-10-19 13:28 | disposition home or self-care (01) ==
LOC: H.ER 12:44
DX: R21 Rash and other nonspecific skin eruption (principal); Z86.59 Personal history of other mental and behavioral disorders; E03.9 Hypothyroidism, unspecified; T78.40XA Allergy, unspecified, initial encounter

== ENCOUNTER 2017-10-27 10:16 | Emergency (ER) | payer MEDICAID ==
[2017-10-27 10:29] VITALS: O2SAT 99; BMI 31.6
--- NOTE | 2017-10-27 11:07 | ED PDOC ---
HPI: Abdomen Time Seen by Provider: 10/27/17 10:57 Chief Complaint (Nursing): Abdominal Pain History Per: Patient Onset/Duration Of Symptoms: Days (7) Current Symptoms Are (Timing): Still Present Severity: Moderate Quality Of Discomfort: Unable To Describe Associated Symptoms: denies: Nausea, Vomiting, Diarrhea Exacerbating Factors: None Alleviating Factors: None Additional Complaint(s): LLQ abd pain x 1 week. Has had chronic pain left side but was recently told she had hernia left side that was causing her sxs. Denies NVD. Nl BM. Feels bulge when coughing or sneezing Past Medical History Vital Signs: Last Vital Signs Temp 98.5 F 10/27/17 10:28 Pulse 82 10/27/17 10:28 Resp 16 10/27/17 10:28 BP 113/73 10/27/17 10:28 Pulse Ox 99 10/27/17 10:28 - Medical History PMH: Anemia, Anxiety, Bipolar Disorder, Depression, Hypothyroidism, Pneumonia Denies: Diabetes, Hepatitis, HIV, HTN, Chronic Kidney Disease, Seizures, Sexually Transmitted Disease - Surgical History Surgical History: Cholecystectomy, Hernia Repair (x 3), (x 2) - Family History Family History: States: Unknown Family Hx - Home Medications Home Medications: Ambulatory Orders Medication Instructions Recorded Aripiprazole [Abilify Maintena] 300 mg IM TTS 06/05/17 Levothyroxine Sodium [Synthroid] 0.088 mg PO DAILY 06/05/17 Enoxaparin [Lovenox] 40 mg SC DAILY syr 06/08/17 Escitalopram [Lexapro] 5 mg PO HS 30 Days #30 tab 06/08/17 Levothyroxine [Synthroid] 88 mcg PO DAILY@0630 tab 06/08/17 lamoTRIgine [Lamictal] 100 mg PO DAILY 30 Days #60 tab 06/08/17 DiphenhydrAMINE [Benadryl] 1 - 2 cap PO Q6 PRN #16 cap 10/19/17 Methylprednisolone [Medrol Dose 4 mg PO DAILY #21 mg 10/19/17 Pack (21 tabs)] traMADol [Ultram] 50 mg PO Q8 #10 tab 10/27/17 - Allergies Allergies/Adverse Reactions: Allergies Allergy/AdvReac Type Severity Reaction Status Date / Time No Known Allergies Allergy Verified 10/31/16 11:39 Review of Systems Constitutional: Negative for: Fever Gastrointestinal: Positive for: Abdominal Pain. Negative for: Nausea, Vomiting , Diarrhea Genitourinary Female: Negative for: Dysuria, Frequency Physical Exam - Physical Exam Appears: Positive for: Non-toxic, No Acute Distress Cardiovascular/Chest: Positive for: Regular Rate, Rhythm Respiratory: Positive for: CNT, Normal Breath Sounds Gastrointestinal/Abdominal: Positive for: Bowel Sounds, Soft, Hernia (LLQ felt on straining and coughing. Non incarcerated. Not paplable when lying down.) - ECG O2 Sat by Pulse Oximetry: 99 Disposition - Clinical Impression Clinical Impression: Abdominal hernia - Patient ED Disposition Is Patient to be Admitted: No Counseled Patient/Family Regarding: Diagnosis, Need For Followup, Rx Given - Disposition Referrals: Ora Melendez MD [Staff Provider] - Disposition: Routine/Home Disposition Time: 11:10 Condition: FAIR Prescriptions: traMADol [Ultram] 50 mg PO Q8 #10 tab Instructions: Abdominal Hernia (DC)
[2017-10-27 11:18] VITALS: BP 122/67; PULSE 84; RESP 18; TEMP 98.3
== END 2017-10-27 11:15 | disposition home or self-care (01) ==
LOC: H.ER 10:16
DX: K46.9 Unspecified abdominal hernia without obstruction or gangrene (principal)